=== PATIENT | male | born 1950 | race Caucasian/White ===

== ENCOUNTER → 2016-10-22 14:15 | Outpatient (CLI) | payer OTHER ==
[~2016-10-22] VITALS: Ht 182.9 cm; Wt 131.5 kg
[2016-10-22 15:15] VITALS: Ht 182.9 cm; Wt 131.5 kg
== END | disposition home or self-care (01) ==
LOC: D.FANS 09:00
DX: E11.9 Type 2 diabetes mellitus without complications (principal)

== ENCOUNTER 2018-05-06 05:59 | Day surgery (SDC) | payer MEDICARE, OTHER ==
[2018-05-05 09:16] LABS: HEMATOCRIT 44.6 % (42.0-54.0); HEMOGLOBIN 15.2 g/dL (13.5-17.5); MCHC 34.1 g/dL (31.0-37.0); MEAN PLATELET VOLUME 10.1 fL (7.4-10.4); RBC 4.9 10x6/uL (4.20-6.10); RDW 13.9 % (11.5-14.5)
[2018-05-05 09:25] LABS: APTT 26.2 SECONDS (22.8-39.4)
[2018-05-05 09:28] LABS: CALC OSMOLALITY 280 mosm/kg (275-300); CALCIUM 9.6 mg/dL (8.5-10.1); CHLORIDE - SERUM 101 mmol/L (98-107); GLUCOSE 176 mg/dL (74-106); POTASSIUM - SERUM 4.1 mmol/L (3.5-5.1); SODIUM 137 mmol/L (136-145); UREA NITROGEN 20 mg/dL (7-18); eGFR NON AFRICAN AMERICAN 80 mL/min (90-120)
[2018-05-05 09:32] LABS: INR 1.01 (0.85-1.17); PROTIME 12.8 SECONDS (11.6-15.0)
[~2018-05-06] VITALS: Ht 182.9 cm; Wt 87.3 kg
[~2018-05-06 05:59] MED LIST: FISH OIL 1,0001 CA1 PO; FLOMAX0.4 MG PO; FLUTICASONE PRO16 GM NASAL; FORTESTA IM; FOSINOPRIL-HCT1 EAC1 PO; GLUCOPHAGE500 MG PO; MOBIC7.5 MG PO; MYRBETRIQ50 MG PO; NORVASC5 MG PO; TENORMIN50 MG PO; TRIAMTERENE-HCTZ 37. PO; VESICARE10 MG PO; VITAMIN D31000 UNIT PO; ZOCOR20 MG PO
[2018-05-06 07:43] VITALS: BP 128/74; Ht 182.9 cm; Wt 87.3 kg
--- NOTE | 2018-05-06 10:01 | NUR ---
TIVA WAS USED BUT NO PROPOFOL DUE TO ALLERGY, USED KETAMINE
--- NOTE | 2018-05-06 10:05 | NUR ---
REC'D FROM SURGERY. FAMILY/FRIEND AT BEDSIDE. FL GILBERT SERVED. UNABLE TO VOID AT THIS TIME.
--- NOTE | 2018-05-06 10:10 | NUR ---
DR MURDOCK TALKING WITH PATIENT.
--- NOTE | 2018-05-06 10:35 | NUR ---
TOLERATED FL TRAY. VOIDED WITHOUT DIFFICULTY.
--- NOTE | 2018-05-06 10:46 | OP ---
PATIENT NAME: BENJI CANDELARIA MEDICAL RECORD: [id number] :54 LOCATION:D[facility] ADMISSION DATE: SURGEON: KRISTA MURDOCK MD DATE OF OPERATION: 05/06/2018 SURGEON: Krista Murdock MD ANESTHESIA: TIVA by Debora Mondragon CRNA. DIAGNOSES: Obstructive BPH with urge urinary incontinence. PSA is 1.7. Digital rectal examination reveals a 30-gram prostate. IPSS equals 20 and quality of life score is 5. PROCEDURES: UroLift with 5 implants deployed, 4 implants held. FINDINGS: Obstructive bilateral lateral lobes. High bladder neck. Single ureteral orifices. Trabeculated bladder with diverticula. No bladder tumors. BLOOD LOSS: Minimal. CLINICAL HISTORY: This is a 67-year-old male with a complaint of difficulty voiding for several years. His PSA was 1.7 on 08/21/2017. He has issues with daytime urge urinary incontinence and he has to void 2-3 times per hour, especially in the morning. He is currently on VESIcare, Myrbetriq, and Flomax to control his symptoms. He is getting quite symptomatic from all of these medications. He had a MICHELA showing a 30-gram prostate. With all these medications on board, his IPSS score is 20 and quality of life score is 5. He wishes to be off the BPH medications if possible. HE IS ALLERGIC TO PROPOFOL. He was given Ancef senior billing consultant to the OR. DESCRIPTION OF PROCEDURE: The patient was given IV sedation. He was placed in dorsal lithotomy position and prepped and draped. The cystoscopy was performed and we found no bladder tumors, but he had a heavily trabeculated bladder with diverticula visible. No tumors were seen in the diverticula. I first placed the implants in the bladder neck region. We placed them 1.5 cm distal to the bladder neck and the anterior lateral lobes. On the left side, the implant went in without any difficulty. I did strike bone, but I managed to pull back towards the midline of the urethra and the needle was able to complete its deployment. On the right side, I struck a bone and I attempted the same maneuver, but the device pulled through nevertheless. This device was lost. With another device on the right bladder neck region, I managed to get an implant to hold. Finally, we placed another 2 implants at the verumontanum level, one on each side at the anterior lateral lobes. At the end of the procedure, he had a nice open anterior urethral channel. The bladder was emptied through the scope and the scope was removed. I will see him in followup in 1 month's time. TRANSINT:[id number] Voice Confirmation ID: [id number] DOCUMENT ID: [id number] OPERATIVE REPORT [id number] BENJI CANDELARIA, KRISTA Moreno MD at 1046 CC: [id number] DICTATION DATE: 05/06/18 1004 TELEPHONE ORDER DISPATCHER: 05/06/18 1036 REG [facility] [address] [id number]
--- NOTE | 2018-05-06 11:05 | NUR ---
IV DC'D WITH CATHETER INTACT. WRITTEN AND VERBAL DC INST. GIVEN TO PT. VERBALIZED UNDERSTANDING.
--- NOTE | 2018-05-06 11:10 | NUR ---
DC'D HOME WITH FAMILY/FRIEND VIA PRIVATE VEHICLE. TAKEN TO VEHICLE VIA WC. STABLE AT TIME OF DC.
== END 2018-05-06 11:10 | disposition home or self-care (01) ==
LOC: D.OPS 05:59 → D.PAN 08:00 → D.OPS 08:25
PROVIDERS: Anesthesiology; ATTEND Urology
DX: N40.1 Benign prostatic hyperplasia with lower urinary tract symptoms (principal); N39.41 Urge incontinence; N13.8 Other obstructive and reflux uropathy; N32.89 Other specified disorders of bladder; N32.3 Diverticulum of bladder; Z88.4 Allergy status to anesthetic agent; Z01.812 Encounter for preprocedural laboratory examination

== ENCOUNTER → 2018-07-16 15:17 | Outpatient (CLI) | payer MEDICARE, OTHER ==
[2018-05-06 07:43] VITALS: BMI 26.1
== END | disposition home or self-care (01) ==
LOC: D.LABREF 15:17
PROVIDERS: ATTEND Urology
DX: N39.0 Urinary tract infection, site not specified (principal)

== ENCOUNTER → 2020-06-11 18:29 | Outpatient (CLI) | payer MEDICARE, OTHER ==
[2018-05-06 07:43] VITALS: BMI 26.1
== END | disposition home or self-care (01) ==
LOC: D.LABREF 18:29
PROVIDERS: ATTEND Orthopaedic Surgery
DX: M17.12 Unilateral primary osteoarthritis, left knee (principal)

== ENCOUNTER 2020-08-08 08:51 | Observation (INO) | payer MEDICARE, OTHER ==
[2020-08-03 09:41] LABS: BASOPHILS 1.3 % (0-2); EOSINOPHILS 2.9 % (0-7); HEMATOCRIT 43.6 % (42.0-54.0); HEMOGLOBIN 14.6 g/dL (13.5-17.5); LYMPHOCYTES 34.9 % (15-50); MCH 30.7 pg (26.0-34.0); MCHC 33.5 g/dL (31.0-37.0); MCV 91.7 fL (80.0-100.0); MEAN PLATELET VOLUME 7.9 fL (7.4-10.4); MONOCYTES 9.2 % (2-11); NEUTROPHILS 51.7 % (40-80); PLATELET COUNT 237 10x3/uL (130-400); RBC 4.76 10x6/uL (4.20-6.10); WBC 5.4 10x3/uL (4.8-10.8)
[2020-08-03 09:46] LABS: CALC OSMOLALITY 285 mosm/kg (275-300); CALCIUM 9.7 mg/dL (8.5-10.1); CARBON DIOXIDE 28.1 mmol/L (21.0-32.0); CHLORIDE - SERUM 104 mmol/L (98-107); GLUCOSE 182 mg/dL (74-106); POTASSIUM - SERUM 4.2 mmol/L (3.5-5.1); SODIUM 139 mmol/L (136-145); UREA NITROGEN 21 mg/dL (7-18); eGFR NON AFRICAN AMERICAN 79 mL/min (90-120)
[2020-08-03 09:48] LABS: BILIRUBIN NEGATIVE (NEGATIVE); KETONE NEGATIVE mg/dL (< 1+); NITRITE NEGATIVE (NEGATIVE); UROBILINOGEN NORMAL mg/dL (< 2); WHITE CELLS - URINE 1 HPF (0-1)
[2020-08-03 09:52] LABS: APTT 24.3 SECONDS (22.8-39.4); INR 1.06 (0.85-1.17); PROTIME 12.7 SECONDS (11.6-15.0)
[~2020-08-08] VITALS: Ht 182.9 cm; Wt 138.6 kg
[~2020-08-08 08:51] MED LIST changes: +LEXAPRO10 MG PO; +NAPROSYN500 MG PO
[2020-08-08 10:07] VITALS: BP 159/77; BMI 41.8
[2020-08-08 14:40] VITALS: BP 145/64
[2020-08-08 20:08] VITALS: BP 129/64
--- NOTE | 2020-08-09 01:31 | NUR ---
ALERT RESTING IN BED, CPM IN USE, DENIES NEEDS AT THIS TIME, SEE SHIFT ASSESSMENT, CALL LIGHT IN REACH
[2020-08-09 04:43] VITALS: BP 119/58
[2020-08-09 06:27] LABS: HEMATOCRIT 37.2 % (42.0-54.0); HEMOGLOBIN 12.5 g/dL (13.5-17.5); MCHC 33.5 g/dL (31.0-37.0); MCV 92.5 fL (80.0-100.0); MEAN PLATELET VOLUME 8.3 fL (7.4-10.4); RBC 4.02 10x6/uL (4.20-6.10); WBC 7.5 10x3/uL (4.8-10.8)
--- NOTE | 2020-08-09 07:57 | NUR ---
ALERT AND ORIENTED. ASSESSMENT COMPLETE. DENIES NEEDS. BED LOW. CALL PANCHAL AND PERSONAL ITEMS IN REACH. WILL CONTINUE TO MONITOR.
[2020-08-09] MEDS ORDERED: ELIQUIS2.5 MG PO (08:18)
[2020-08-09] MEDS ORDERED: PERCOCET 10-321 EAC1 PO (08:18)
--- NOTE | 2020-08-09 08:28 | OP ---
PATIENT NAME: BENJI MARIN MEDICAL RECORD: [id number] :54 LOCATION:[facility] ADMISSION DATE:08/08/20 SURGEON: CLIFFORD MANZANO DO DATE OF OPERATION: 08/08/2020 PROCEDURE PERFORMED: Left total knee arthroplasty. PREOPERATIVE DIAGNOSIS: Left knee osteoarthritis. POSTOPERATIVE DIAGNOSIS: Left knee osteoarthritis. INDICATIONS: Mr. Marin is a 69-year-old male who has had left knee pain and problems for years. Really, he injured it originally in the and has had problems since. It got to the point where he could barely do his activities of daily living and severe pain. He tried all manner nonoperative treatment to no avail. Once he was ready, I informed him of the risk of total knee replacement including infection, bleeding, fracture, damage to nerves and vessels, need for further surgery, loss of motion, failure of implants, blood clots and even and need for further surgery, loosening of the implants and he signed the consent. SURGEON: Clifford Manzano DO DESCRIPTION OF PROCEDURE: The patient was given a block and spinal by anesthesia in the preoperative area, taken to the operative suite, given light sedation and 2 grams of Ancef, 80 mg of gentamicin and a gram of TXA. His left lower extremity was then prepped and draped in sterile fashion. A timeout was performed and everyone was in agreeance with the correct side, site, patient and procedure. I then began by marking out the incision on the anterior knee and covered in Ioban. I then used a 10-blade scalpel, made careful dissection down to the knee capsule. I then used a fresh 10-blade to do a medial parapatellar approach, coagulating any bleeding with the Aquamantys. I then everted the patella, removed part of the fat pad, he had large loose bodies in the anterior knee that I removed. There were about 4 of them, they are quite large and we got them removed and milled the patella down and sized it to be at 32. A 32 was then drilled, 3 holes through the guide. I then exposed the femur and drilled into the femoral canal. I then put the intramedullary guide in the femoral canal and cut the distal femur with the guide. I then exposed the proximal tibia and cut it at the extramedullary guide and removed the bone, brought the knee in extension, removing the menisci and coagulating any bleeding with Aquamantys at that time. I then put the 10 extension block and it fit very well. I then flexed the knee, upsized the femur to be 11. I then used the 4-in-1 cutting block after using the tulio wing to ensure there would be no notching and cut the femur through the anterior, posterior and chamfer cuts. I then exposed the tibia, sized it to be H, pinned it into place, we are going to press fit them. I then put on the 11 femur trial, put a 10 poly in between and then went up to a 12, it fit very well. I then drilled lug holes of the femur, removed the femoral trial and reamed the post-holes for the tibial tray, irrigated, impacted on the tibial tray and then the femur. I then put a 12 medial congruent bearing on and locked it into place. I then exposed the patella, irrigated out and cleaned out the holes. Cement was mixed. I put in the patellar holes on the patella and squeezed into place, removed the excess cement. I left it on for 10 minutes while the cement hardened. I then irrigated with 10% povidone-iodine and 500 mL of normal saline solution and injected with the joint cocktail around the joint. Once that was done, I then OPERATIVE REPORT [id number] BENJI MARIN irrigated out with over a liter of normal saline and the cement dried. I then closed the capsule with #1 Vicryl in jlilsj-lc-fztvy fashion. Then Ilya Good, certified surgical field administrative assistant closed the capsule over that closure with a #1 Stratafix and then the skin was closed by himself and Jasper Soto, certified surgical field administrative assistant with 2-0 Vicryl in inverted interrupted fashion and placed on a ZipLine, Adaptic, 4 x 4s, ABD, Webril, Shakeel wrap and OLGA hose stocking. He was awakened and taken to recovery in stable condition. Blood loss was approximately 200 mL. He was given another gram of TXA. COMPLICATIONS: None. TRANSINT:[id number] Voice Confirmation ID: [id number] DOCUMENT ID: [id number] CLIFFORD MANZANO DO at 3246 CC: [id number] DICTATION DATE: 08/08/20 1335 TAX MAP TECHNICIAN: 08/08/20 1526 ADM IN [facility] [address] [id number]
[2020-08-09 08:40] VITALS: BP 140/62
[2020-08-09 09:16] VITALS: BP 145/64; Ht 182.9 cm; Wt 138.6 kg
--- NOTE | 2020-08-09 09:34 | MORECARE ---
CASE MANAGEMENT DISCHARGE SUMMARY PATIENT: BENJI CANDELARIA UNIT: [id number] ADM DATE: 08/08/20 AGE: 69 : 52 SEX: M [facility] AUTHOR: NISH,DOC PHYSICIAN: REFERRING PHYSICIAN: JODIE MANZANO DO DATE OF SERVICE: 08/09/20 Case Management Discharge Planning Summary DCP REVIEW SUMMARY ANTICIPATED D/C DATE: EXPECTED LOS : CASE STATUS: DCP Initiated INITIAL REVIEW: 08/08/2020 INITIAL REVIEWER: Sofia Farmer FINAL DISCHARGE DISPOSITION: : FINAL REVIEWER: FINAL REVIEW DATE: DCP Focus Questions & Answers QUESTION: ANSWER : PATIENT: BENJI CANDELARIA ENCOUNTER: [id number] MEDICAL RECORD#: [id number] ADMISSION DATE: 08/08/2020 DISCHARGE DATE: ATTENDING MD: JODIE ZIMMERMAN : AGE: 69 MARITAL STATUS: M DC PLAN ID: [id number] FACILITY: [facility] PRINTED ON: 08/09/20 9:34 CT All edits/amendments must be made on the electronic document DICTATION DATE: 08/09/20933 SAFETY PATROL OFFICER: DM 08/09/20933 RPT#: [id number] DC DATE: STATUS: ADM IN [facility] [address] [place] [address] END OF REPORT
--- NOTE | 2020-08-09 09:45 | MORECARE ---
CASE MANAGEMENT DISCHARGE SUMMARY PATIENT: BENJI CANDELARIA UNIT: [id number] ADM DATE: 08/08/20 AGE: 69 : 52 SEX: M ROOM/BED: D.2232 AUTHOR: NISH,DOC PHYSICIAN: REFERRING PHYSICIAN: JODIE MANZANO DO DATE OF SERVICE: 08/09/20 Case Management Discharge Planning Summary COMMENTS ENTERED DATE: 08/09/20 9:37 CT COMMENT TYPE: Discharge Planning REVIEWER: Sofia Farmer CM met with patient at bedside after obtaining verbal consent. CM discussed availability / needs of home health, REHAB and medical equipment. Patient has CPM machine and walker with [employer] He will need a bariatric toilet riser and [facility] does not have them. I have faxed an order to [employer] to deliver to his home. He wants out patient physical therapy with [employer] and pt, his appointment is set up for Thursday08/09/20 at 1430. Patients will pick him up today. CM to follow and assist as needed. DCP REVIEW SUMMARY ANTICIPATED D/C DATE: EXPECTED LOS : CASE STATUS: DCP Initiated INITIAL REVIEW: 08/08/2020 INITIAL REVIEWER: Sofia Farmer FINAL DISCHARGE DISPOSITION: : FINAL REVIEWER: FINAL REVIEW DATE: DCP Focus Questions & Answers QUESTION: ANSWER : PATIENT: BENJI CANDELARIA ENCOUNTER: [id number] MEDICAL RECORD#: [id number] ADMISSION DATE: 08/08/2020 DISCHARGE DATE: ATTENDING MD: JODIE ZIMMERMAN : AGE: 69 MARITAL STATUS: M DC PLAN ID: [id number] FACILITY: [facility] PRINTED ON: 08/09/20 9:44 CT All edits/amendments must be made on the electronic document DICTATION DATE: 08/09/20943 CLEAN OUT DRILLER: DM 08/09/20943 RPT#: [id number] DC DATE: STATUS: ADM IN [facility] [address] [place] [address] END OF REPORT
--- NOTE | 2020-08-09 10:08 | NUR ---
DC EDUCATION PROVIDED BOTH WRITTEN AND VERBAL. VERBALIZED UNDERSTANDING. DENIES FURTHER QUESTIONS. IV REMOVED FROM RFA WITH TIP INTACT. DRSG CHANGED TO LEFT KNEE PER ORDER AND WRAPPED WITH RERE. DRSG X 5 SENT WITH PATIENT PER ORDER WTIH EDUCATION. PATIENT DENIES QUESTIONS. HARD RX FOR PRN PAIN MEDICATION SENT WITH PATIENT AND COPY SIGNED. PATIENT'S CALLED PER PATIENT'S REQUEST TO TAFE TEACHER PATIENT.
--- NOTE | 2020-08-09 11:29 | NUR ---
PATIENT DC HOME WITH WITH ALL BELONGINGS.
--- NOTE | 2020-08-09 11:35 | MORECARE ---
CASE MANAGEMENT DISCHARGE SUMMARY PATIENT: BENJI CNADELARIA UNIT: [id number] ADM DATE: 08/08/20 AGE: 69 : 52 SEX: M ROOM/BED: D.2232 AUTHOR: NISH,DOC PHYSICIAN: REFERRING PHYSICIAN: JODIE MANZANO DO DATE OF SERVICE: 08/09/20 Case Management Discharge Planning Summary COMMENTS ENTERED DATE: 08/09/20 9:37 CT COMMENT TYPE: Discharge Planning REVIEWER: Sofia Farmer CM met with patient at bedside after obtaining verbal consent. CM discussed availability / needs of home health, REHAB and medical equipment. Patient has CPM machine and walker with [employer]. He will need a bariatric toilet riser and [facility] does not have them. I have faxed an order to [employer] to deliver to his home. He wants out patient physical therapy with [employer] and pt, his appointment is set up for Thursday08/09/20 at 1430. Patients will pick him up today. CM to follow and assist as needed. DCP REVIEW SUMMARY ANTICIPATED D/C DATE: EXPECTED LOS : CASE STATUS: DCP Initiated INITIAL REVIEW: 08/08/2020 INITIAL REVIEWER: Sofia Farmer FINAL DISCHARGE DISPOSITION: : FINAL REVIEWER: FINAL REVIEW DATE: DCP Focus Questions & Answers QUESTION: ANSWER : PATIENT: BENJI CANDELARIA ENCOUNTER: [id number] MEDICAL RECORD#: [id number] ADMISSION DATE: 08/08/2020 DISCHARGE DATE: 08/09/2020 ATTENDING MD: JODIE ZIMMERMAN : AGE: 69 MARITAL STATUS: M DC PLAN ID: [id number] FACILITY: [facility] PRINTED ON: 08/09/20 11:35 CT All edits/amendments must be made on the electronic document DICTATION DATE: 08/09/20 1135 SAFETY AND SKILL BASED PAY MANAGER: RASHARD 08/09/20 1135 RPT#: [id number] DC DATE:08/09/20 STATUS: DIS IN [facility] [address] [place] [address] END OF REPORT
--- NOTE | 2020-08-10 16:33 | MORECARE ---
CASE MANAGEMENT DISCHARGE SUMMARY PATIENT: BENJI CANDELARIA UNIT: [id number] ADM DATE: 08/08/20 AGE: 69 : 52 SEX: M ROOM/BED: D.2232 AUTHOR: NISH,DOC PHYSICIAN: REFERRING PHYSICIAN: JODIE MANZANO DO DATE OF SERVICE: 08/10/20 Case Management Discharge Planning Summary COMMENTS ENTERED DATE: 08/09/20 9:37 CT COMMENT TYPE: Discharge Planning REVIEWER: Sofia Farmer CM met with patient at bedside after obtaining verbal consent. CM discussed availability / needs of home health, REHAB and medical equipment. Patient has CPM machine and walker with [employer]. He will need a bariatric toilet riser and [facility] does not have them. I have faxed an order to [employer] to deliver to his home. He wants out patient physical therapy with [employer] and pt, his appointment is set up for Thursday08/09/20 at 1430. Patients will pick him up today. CM to follow and assist as needed. DCP REVIEW SUMMARY ANTICIPATED D/C DATE: EXPECTED LOS : CASE STATUS: DCP Initiated INITIAL REVIEW: 08/08/2020 INITIAL REVIEWER: Sofia Farmer FINAL DISCHARGE DISPOSITION: : FINAL REVIEWER: FINAL REVIEW DATE: DCP Focus Questions & Answers QUESTION: ANSWER : PATIENT: BENJI CANDELARIA ENCOUNTER: [id number] MEDICAL RECORD#: [id number] ADMISSION DATE: 08/08/2020 DISCHARGE DATE: 08/09/2020 ATTENDING MD: JODIE ZIMMERMAN : AGE: 69 MARITAL STATUS: M DC PLAN ID: [id number] FACILITY: [facility] PRINTED ON: 08/10/20 16:33 CT All edits/amendments must be made on the electronic document DICTATION DATE: 08/10/20 163 [address] PRESS OPERATOR: RASHARD 08/10/20 1633 RPT#: [id number] DC DATE:08/09/20 STATUS: DIS IN [facility] [address] [place] [address] END OF REPORT
== END 2020-08-09 11:29 | disposition home or self-care (01) ==
LOC: D.OPS 08:51 → D.MS 14:38 → D.OPS 15:05 → D.MS 15:15 → OBSVTIME 15:15 → D.OPS 15:15 → D.MS 08-09 11:29
PROVIDERS: ADMIT Orthopaedic Surgery; ATTEND Orthopaedic Surgery
DX: M17.12 Unilateral primary osteoarthritis, left knee (principal); E11.9 Type 2 diabetes mellitus without complications; I10 Essential (primary) hypertension; E78.5 Hyperlipidemia, unspecified; Z79.84 Long term (current) use of oral hypoglycemic drugs; N40.0 Benign prostatic hyperplasia without lower urinary tract symptoms